=== PATIENT | female | born 1945 | race Caucasian/White ===

== ENCOUNTER 2024-07-05 13:53 | Inpatient (IN) | payer MEDICARE, MEDICAID, SELFPAY ==
--- NOTE | ~2024-07-05 | XR_ITS ---
EXAMINATION: XR hip RT 1V w AP pelvis DATE: 07/06/2024 16:14 INDICATION: Right femoral neck fracture. TECHNIQUE: An anteroposterior view of the pelvis and single view of right hip were obtained. COMPARISON: Right hip and pelvis radiographs 07/05/24 FINDINGS: There is a bipolar right hip hemiarthroplasty in near-anatomic alignment. No acute fracture . There is an old healed fracture of proximal left femur with internal fixation. There is mild left h ip osteoarthritis. There are surgical clips in medial left thigh. IMPRESSION: 1. New bipolar right hip arthroplasty in near-anatomic alignment. 2. Mild left hip osteoarthritis. Reviewed, dictated and finalized at location A.
--- NOTE | ~2024-07-05 | XR_ITS ---
XR hip RT 2V w AP pelvis Ordering provider: Juventino Little MD History: . fracture . Comparison: None. FINDINGS: BONES: Fracture right femoral neck. Minimal superior displacement of the distal fragment. Postoperati ve changes in the proximal left femur. HIP JOINT SPACES: Bilateral mild to moderate osteoarthritic changes. SACROILIAC JOINT SPACES/LUMBAR SPINE: The sacroiliac joint spaces are normal. Mild degenerative aburto es of the visualized lower lumbar spine. PUBIC SYMPHYSIS: Normal. SOFT TISSUES: Normal. IMPRESSION: Fracture right femoral neck. Reviewed, dictated and finalized at location A.
--- NOTE | ~2024-07-05 | XR_ITS ---
SINGLE VIEW LEFT HIP Ordering provider: Juventino Little MD History: . Fx- AP centered on L fem head, Mild Int Rot of leg . Comparison: None. FINDINGS: BONES: Postoperative changes in the left femoral neck and proximal femur for subtrochanteric fracture . Degenerative changes of the spine. JOINT SPACES: Mild to moderate osteoarthritic changes SOFT TISSUES: Normal. IMPRESSION: Postoperative changes in the left proximal femur. Reviewed, dictated and finalized at location A.
--- NOTE | ~2024-07-05 | XR_ITS ---
EXAMINATION: XR surgery orthopedic DATE: 07/06/2024 14:49 INDICATION: Right femoral neck fracture. TECHNIQUE: A single intraoperative view of the pelvis was obtained. COMPARISON: Pelvis radiograph 07/05/24 FINDINGS: There is a broach in proximal right femur. There are osteophytes of right acetabulum. There is an old healed fracture of proximal left femur with internal fixation. There is mild left hip oste oarthritis. There are surgical clips in medial left thigh. IMPRESSION: 1. Right hip arthroplasty in progress. 2. Mild left hip osteoarthritis. Reviewed, dictated and finalized at location A.
--- NOTE | ~2024-07-05 | XR_ITS ---
XR chest 1V portable 07/05/2024 16:18 Indication: Preop Procedure: AP portable chest Comparison: No prior studies for comparison. Findings: Status post median sternotomy for CABG. Prosthetic heart valve present. Cardiomegaly. Right basilar infiltrate may represent atelectasis or developing pneumonia. No edema or pneumothorax. No a cute osseous abnormality. There are severe degenerative changes of the shoulders, right greater than left. Impression: 1: Subtle right basilar infiltrates may represent atelectasis or developing pneumonia. Reviewed, dictated and finalized at location B. Impression: 1: Subtle right basilar infiltrates may represent atelectasis or developing pne umonia.
--- NOTE | 2024-07-05 12:25 | ADMGEN ---
This patient, Annika Ortega, was admitted to [facility] Surg Room 325-02. Patient/family oriented to hospital policies and general routines including ID bracelet, bed and alarms, visiting hours, pain management, procedures, bathroom and other care routines, personal items, smoking policy, room service/diet, and visiting hours. Information on how to activate the Rapid Response Team has been discussed. Patient/Family are encouraged to report perceived risks to care and to ask questions if they do not understand what they are told or what they should do.
[2024-07-05 14:00] VITALS: BP 148/88; PULSE 74; RESP 20; TEMP 36.4; O2SAT 99
--- NOTE | 2024-07-05 15:04 | PM.IMHP ---
H&P: HPI History of Present Illness Date/Time: 07/05/24 14:05 Chief Complaint: Right Hip Pain Narrative: Patient is a resident at [facility] and was transferred to this facility from [facility] in [place] with concern for Right hip fracture. Patient is wheelchair spencer and apparently was placed on the wheelchair in her room but attempted to walk, and was found on the floor. Unclear if the fall was witnessed or unwitnessed and patient unable to provide any information due her history of dementia. Patient had imaging done at the transferring hospital that revealed an acute, displaced subcapital fracture of the right femoral neck. Patient was transferred to this facility for further treatment per Orthopedic surgeon here at [place]. As mentioned, patient confused due to dementia and denies pain but grimaces and moans with right hip region palpation. Significant Labs from transferring facility: Na 140, K+ 3.6, Ca 9.5, CO2 22.8, BUN 19, Cr 0.72, WBC 7.8, Hgb 12.4, HCT 37.5, Plat 331, EKK: SR with occasional PVC's, non-specific ST, T waves abnormalities. Review of Systems Review of Systems: All systems reviewed & are unremarkable except as noted in HPI and below [facility] Family History Family History Father Lung cancer Mother Cerebrovascular accident Hypertension Sibling Dementia Social History Social History Smoking status: Never smoker Second hand tobacco smoke exposure: No Alcohol intake: never Substance use: never Spiritual care concerns: No Meds Home Medications and Allergies Home Medications Medication Instructions Recorded Confirmed Type Advanced Thera-M 1 tablet PO DAILY 07/05/24 07/05/24 History Remeron 15 mg PO HS 07/05/24 07/05/24 History acetaminophen 650 mg 650 mg PO Q12H 07/05/24 07/05/24 History tablet,extended release amlodipine 10 mg tablet 10 mg PO DAILY 07/05/24 07/05/24 History atorvastatin 10 mg tablet 10 mg PO HS 07/05/24 07/05/24 History buspirone 10 mg tablet 10 mg PO BID 07/05/24 07/05/24 History ferrous sulfate 325 mg (65 mg 325 mg PO DAILY 07/05/24 07/05/24 History iron) tablet (Iron (ferrous sulfate)) hydrocodone 5 mg-acetaminophen 325 1 tablet PO Q6H PRN Severe Pain 07/05/24 07/05/24 History mg tablet (Scale Score 7-10) lorazepam 0.5 mg tablet (Ativan) 0.5 mg PO TID PRN 07/05/24 07/05/24 History anxiety/aggitation metoprolol tartrate 50 mg tablet 50 mg PO BID 07/05/24 07/05/24 History omeprazole 20 mg capsule,delayed 20 mg PO BID 07/05/24 07/05/24 History release ondansetron HCl 4 mg tablet 4 mg PO Q6H PRN nausea/vomiting 07/05/24 07/05/24 History polyethylene glycol 3350 17 gram 17 g PO DAILY 07/05/24 07/05/24 History oral powder packet (Miralax) sennosides 8.6 mg tablet (Senokot) 8.6 mg PO DAILY PRN Constipation 07/05/24 07/05/24 History sertraline 100 mg tablet 100 mg PO DAILY 07/05/24 07/05/24 History tamsulosin 0.4 mg capsule (Flomax) 0.4 mg PO DAILY 07/05/24 07/05/24 History Allergies Allergy/AdvReac Type Severity Reaction Status Date / Time cephalexin Allergy Itching Verified 07/05/24 13:27 chlordiazepoxide Allergy Unknown Verified 07/05/24 13:27 ciprofloxacin Allergy Unknown Verified 07/05/24 13:27 codeine Allergy Nausea and Verified 07/05/24 13:27 Vomiting Sulfa (Sulfonamide Allergy Rash Verified 07/05/24 13:27 Antibiotics) acetaminophen AdvReac Nausea and Verified 07/05/24 13:27 Vomiting Vital Signs Vital Signs - 24 hr 07/05/24 14:00 Temperature 97.5 F L Pulse Rate 74 Respiratory Rate 20 Blood Pressure 148/88 H Pulse Oximetry 99 Exam Narrative: General: Pleasantly confused, only oriented to self. HEENT: Atraumatic, PERRL, pink and moist mucus membrane. Neck: Supple. Respiratory: Clear bilaterally. Lab Tech: RRR, S1S2. Gastrointestinal: Soft and non-tender, +
--- NOTE | 2024-07-05 15:32 | ECG_ITS ---
Test Date: 2024-07-05 15:48:05 Measurements Intervals [place] Rate: 82 P: 10 TX: 150 QRS: 3 QRSD: 94 T: 50 QT: 391 QTc: 459 Interpretive Statements SINUS RHYTHM WITH OCCASIONAL VENTRICULAR PREMATURE COMPLEXES NONSPECIFIC ST & T-WAVE ABNORMALITY No previous ECG available for comparison Electronically Signed On 07-05-2024 17:16:12 CDT by Deepthi Acuna M.D.
[2024-07-05 16:00] VITALS: BP 148/88; PULSE 74; RESP 20; TEMP 36.4; O2SAT 99
[2024-07-05 16:03] VITALS: BMI 22.3
[2024-07-05 16:44] LABS: Basophils Percent Auto 0.4 % (0.2-1.2); Eosinophils Percent Auto 0.1 % (0-4.4); Hematocrit 42.8 % (37.0-47.0); Hemoglobin 13.8 g/dL (12.0-15.0); Immature Granulocyte Absolute 0.04 K/mm3 (0.00-0.031); Immature Granulocyte Percent A 0.4 % (0-0.5); Lymphocytes Absolute Auto 0.75 K/mm3 (0.9-3.2); Lymphocytes Percent Auto 7.2 % (18.3-44.2); Mean Corpuscular HGB Conc 32.2 g/dl (32-36); Mean Corpuscular Hemoglobin 29.9 pg (26-34); Mean Corpuscular Volume 92.8 fl (80-100); Mean Platelet Volume 8.6 fl (7.4-10.4); Monocytes Absolute Auto 0.5 K/mm3 (0.1-0.6); Monocytes Percent Auto 4.8 % (2.6-8.5); Neutrophils Absolute Auto 9.1 K/mm3 (1.3-6.7); Neutrophils Percent Auto 87.1 % (45.5-73.1); Platelet Count Result 331 k/mm3 (150-375); Red Blood Count 4.61 M/mm3 (4.2-5.4); Red Cell Distribution Width 12.3 % (11.5-14.5); White Blood Count 10.5 K/mm3 (4.5-10.0)
[2024-07-05 16:55] LABS: Alanine Aminotransferase 18 U/L (6-35); Albumin Level 4.4 g/dL (3.5-5.1); Alkaline Phosphatase 176 U/L (38-126); Anion Gap 13 mmol/L (4-12); Aspartate Amino Transferase 35 U/L (14-36); Bilirubin,Total 0.8 mg/dL (0.2-1.3); Blood Urea Nitrogen 12 mg/dL (7-17); Calcium 9.6 mg/dL (8.4-10.2); Carbon Dioxide 29 mmol/L (22-30); Chloride 97 mmol/L (98-107); Estimated CRCL calculation 58 ml/min; Estimated Glomerular Filt Rate > 60; Glucose 113 mg/dL (65-110); INR 1.1; Partial Thromboplastin Time 31.7 Seconds (22.3-36.8); Potassium 3.8 mmol/L (3.4-5.0); Prothrombin Time 14.5 Seconds (11.1-14.7); Sodium 139 mmol/L (137-145)
--- NOTE | 2024-07-05 16:55 | PM.CNOR ---
Assessment and Plan Assessment and plan (1) Fracture of femoral neck, right, closed: Qualifiers: Encounter type: initial encounter Qualified Code(s): S72.001A - Fracture of unspecified part of neck of right femur, initial encounter for closed fracture Code(s): S72.001A - Fracture of unspecified part of neck of right femur, initial encounter for closed fracture Status: Acute Assessment and Plan: Patient is an 79-year-old female fell last night when she is believed to have out of bed by herself and she was evaluated at [facility] and x-rays demonstrate a displaced subcapital femoral neck fracture [place] 4. Her past medical history is significant for moderate. She does have worsening when I speak to her, she had no understanding of anything that I said to her and all of her wrist this is were completely unrelated to what I had said. She expressed that she is tired and upset. She is completely unaware of the. When I gently touched her right knee putting her hand on her right hip. She did not wish further so I was not able to assess pulses but the is normal and she does wiggle her. Toes voluntarily. She denies any other injury. To cooperate with further examination however. She wanted to be left alone. I obtained past history from her son Blake. She has a history of a poor seen aortic valve placed approximately 20 years ago and she did very well with that that she was very active can 10 miles a day until her dementia became significant several years ago. She has followed with Dr. Yoder, the ivory carver at [facility], for many years but not the last 2 or 3 years since she has become too agitated to go in the car ride. Approximately 2 years ago she underwent trochanteric nail fixation of intertrochanteric left hip fracture. This healed well. She has several allergies she had nausea and vomiting from Tylenol in the past. I will try liquid Tylenol and see if she tolerates that better. She had itching with cephalexin so we will have to assume that she may have an allergy to cephalosporins. As her home medications she does have [place] every 6 hours as needed listed. New x-rays were obtained here true reviewed. There does not appear to be any calf of the femoral neck or proximal femur. It appears that she has an isolated subcapital femoral neck fracture which is completely displaced. She does spend much of her time in the wheelchair but is in a program at [facility] where she is walked with therapy every day with a walker. Her son denies any known history of heart attack or stroke. Assessment and plan: Patient has a displaced right 5th subcapital. I discussed options with her son Blake at length. The best surgical option would be a cemented partial hip replacement. She will not be able to understand how to be partial weight-bearing or put it so the cemented stem would be preferred as there would be less risk of periprosthetic fracture postoperatively. Other treatment would be nonsurgical treatment providing comfort measures. Risk of surgery was discussed in detail and I reviewed the pertinent surgical complications as well as discussed the fact that she is at increased risk for medical complications and mortality because of her advanced age and dementia. Her son wants to give her the best opportunity to have acceptable quality of life and wants to proceed with surgery in the hopes that she can resume walking again to some degree we will proceed tomorrow the OR as determined the surgery time will be approximately I have spoken with the hospitalist and cardiology is also going to be consulted for their recommendations The plan will be for her to return to care center after surgery for according to her son. History of Present Illness HPI Consult date: 07/05/24 Chief complaint: R femoral neck fx PMFSH Family History Family History Father
[2024-07-05 17:08] LABS: Troponin I 0.031 ng/mL (0.000-0.034)
[2024-07-05 18:02] VITALS: PULSE 75
[2024-07-05] MEDS: SODIUM CHLORIDE 0.9% IV 1,000 ML 75 ML IV CONT (18:02)
[2024-07-05] MEDS: METOPROLOL TARTRATE 50 MG TAB PO (18:02)
[2024-07-05] MEDS: ACETAMINOPHEN 325 MG TABLET 650 MG PO (18:03)
[2024-07-05] MEDS: oxyCODONE HCL (*CRX) 2.5 MG TAB IR PO (18:03)
[2024-07-05] MEDS: PANTOPRAZOLE 40 MG TABLET PO (18:03)
[2024-07-05] MEDS: busPIRone HCL 10 MG TABLET PO (18:03)
[2024-07-05 20:00] VITALS: BP 160/81; PULSE 59; RESP 22; TEMP 35.8; O2SAT 97
[2024-07-05] MEDS: ATORVASTATIN 10 MG TABLET PO (20:24)
[2024-07-05] MEDS: MIRTAZAPINE 15 MG TABLET PO (20:24)
[2024-07-06] VITALS (19 sets, daily range): BP systolic 96–156; BP diastolic 43–80; PULSE 61–101; RESP 12–17; TEMP 35.9–37.7; O2SAT 96–100
[2024-07-06] MEDS: MORPHINE SULFATE (*CRX) 2 MG/ML INJ IV PUSH ×2 (01:08→09:10)
[2024-07-06 01:48] LABS: Add Urine Microscopic? YES; Appearance Urine Clear (Clear); Bacteria Urine None Seen /hpf; Bilirubin Urine Negative (Negative); Blood Urine 1+ (Negative); Color Urine Yellow (Yellow); Glucose Urine UA Negative (Negative); Ketones Urine Negative (Negative); Leukocyte Esterase Ur Negative LEU/UL (Negative); Nitrate Urine Negative (Negative); Non Pathogenic Casts 0-2; Protein Urine 2+ mg/dL (Negative); RBC Urine 0-2 /hpf (0-2); Specific Grav Ur 1.006 (1.001-1.035); Squamous Epithelial Cell Urine None Seen /hpf (Few); WBC Urine 0-5 /hpf (0-3)
[2024-07-06 06:30] LABS: Basophils Percent Auto 0.3 % (0.2-1.2); Eosinophils Percent Auto 0.3 % (0-4.4); Hematocrit 36.8 % (37.0-47.0); Hemoglobin 12.1 g/dL (12.0-15.0); Immature Granulocyte Absolute 0.05 K/mm3 (0.00-0.031); Immature Granulocyte Percent A 0.5 % (0-0.5); Lymphocytes Absolute Auto 1.07 K/mm3 (0.9-3.2); Lymphocytes Percent Auto 11.5 % (18.3-44.2); Mean Corpuscular HGB Conc 32.9 g/dl (32-36); Mean Corpuscular Hemoglobin 30.2 pg (26-34); Mean Corpuscular Volume 91.8 fl (80-100); Mean Platelet Volume 8.8 fl (7.4-10.4); Monocytes Absolute Auto 0.6 K/mm3 (0.1-0.6); Monocytes Percent Auto 6.1 % (2.6-8.5); Neutrophils Absolute Auto 7.5 K/mm3 (1.3-6.7); Neutrophils Percent Auto 81.3 % (45.5-73.1); Platelet Count Result 295 k/mm3 (150-375); Red Blood Count 4.01 M/mm3 (4.2-5.4); Red Cell Distribution Width 12.4 % (11.5-14.5); White Blood Count 9.3 K/mm3 (4.5-10.0)
[2024-07-06 06:48] LABS: Anion Gap 10 mmol/L (4-12); Blood Urea Nitrogen 13 mg/dL (7-17); Calcium 8.7 mg/dL (8.4-10.2); Carbon Dioxide 23 mmol/L (22-30); Chloride 103 mmol/L (98-107); Estimated CRCL calculation 58 ml/min; Estimated Glomerular Filt Rate > 60; Glucose 99 mg/dL (65-110); Potassium 3.6 mmol/L (3.4-5.0); Sodium 136 mmol/L (137-145)
--- NOTE | 2024-07-06 07:29 | PM.CNCAR ---
Assessment and Plan Assessment and plan (1) Fracture of femoral neck, right, closed: Qualifiers: Encounter type: initial encounter Qualified Code(s): S72.001A - Fracture of unspecified part of neck of right femur, initial encounter for closed fracture Code(s): S72.001A - Fracture of unspecified part of neck of right femur, initial encounter for closed fracture Status: Acute (2) Preoperative cardiovascular examination: Code(s): Z01.810 - Encounter for preprocedural cardiovascular examination Status: Acute Assessment and Plan: I would consider her at least a moderate risk for noncardiac surgery and general anesthesia based on her low functional capacity, frailty, aortic stenosis, and coronary artery disease. (3) Coronary artery disease: Code(s): I25.10 - Atherosclerotic heart disease of [place] coronary artery without angina pectoris Status: Acute (4) Aortic stenosis: Code(s): I35.0 - Nonrheumatic aortic (valve) stenosis Status: Acute History of Present Illness History of Present Illness Consult date/time: 07/06/24 07:29 Requesting physician: Juventino Little MD Consult reason: pre-op evaluation Reason For Visit: R femoral neck fx Narrative: Annika Ortega is an 79 year old female with history of aortic stenosis status post bioprosthetic aortic valve replacement in 2006 and coronary artery disease status post coronary artery bypass graft to the diagonal branch also in 2006. She follows with Dr. Yoder at [place]. The patient has severe dementia, therefore I am unable to obtain any history from her; she refuses to speak to me. Details about her cardiac history have been obtained from the medical record. Review of Systems Review of Systems: ROS unobtainable: Yes unobtainable due to mental status [facility] Family History Family History Father Lung cancer Mother Cerebrovascular accident Hypertension Sibling Dementia Social History Social History Smoking status: Never smoker Second hand tobacco smoke exposure: No Alcohol intake: never Substance use: never Spiritual care concerns: No Meds Home Medications and Allergies Home Medications Medication Instructions Recorded Confirmed Type Advanced Thera-M 1 tablet PO DAILY 07/05/24 07/05/24 History Remeron 15 mg PO HS 07/05/24 07/05/24 History acetaminophen 650 mg 650 mg PO Q12H 07/05/24 07/05/24 History tablet,extended release amlodipine 10 mg tablet 10 mg PO DAILY 07/05/24 07/05/24 History atorvastatin 10 mg tablet 10 mg PO HS 07/05/24 07/05/24 History buspirone 10 mg tablet 10 mg PO BID 07/05/24 07/05/24 History ferrous sulfate 325 mg (65 mg 325 mg PO DAILY 07/05/24 07/05/24 History iron) tablet (Iron (ferrous sulfate)) hydrocodone 5 mg-acetaminophen 325 1 tablet PO Q6H PRN Severe Pain 07/05/24 07/05/24 History mg tablet (Scale Score 7-10) lorazepam 0.5 mg tablet (Ativan) 0.5 mg PO TID PRN 07/05/24 07/05/24 History anxiety/aggitation metoprolol tartrate 50 mg tablet 50 mg PO BID 07/05/24 07/05/24 History omeprazole 20 mg capsule,delayed 20 mg PO BID 07/05/24 07/05/24 History release ondansetron HCl 4 mg tablet 4 mg PO Q6H PRN nausea/vomiting 07/05/24 07/05/24 History polyethylene glycol 3350 17 gram 17 g PO DAILY 07/05/24 07/05/24 History oral powder packet (Miralax) sennosides 8.6 mg tablet (Senokot) 8.6 mg PO DAILY PRN Constipation 07/05/24 07/05/24 History sertraline 100 mg tablet 100 mg PO DAILY 07/05/24 07/05/24 History tamsulosin 0.4 mg capsule (Flomax) 0.4 mg PO DAILY 07/05/24 07/05/24 History aspirin 81 mg tablet,delayed 81 mg PO DAILY #90 tabs 07/07/24 Rx release celecoxib 100 mg capsule (Celebrex) 100 mg PO DAILY@0800 #8 caps 07/07/24 Rx doxycycline hyclate 100 mg tablet 100 mg PO Q12HR #14 tabs 07/07/24 Rx enoxaparin 40 mg/0.4 mL 40 mg (0.
--- NOTE | 2024-07-06 08:14 | W.PM.PROC2 ---
Procedure Note - Detailed Date of Procedure 07/06/24 Pre-op Diagnosis R femoral neck fx Post-op Diagnosis Same Procedure Performed Cemented bipolar hemiarthroplasty right hip Surgeon Juventino Little MD Head Of History Jane Anesthesia General Description of Procedure Patient was brought to the operating room and general anesthesia was administered. The right hip area was carefully scrubbed with the chlorhexidine cloth. She was placed in the lateral decubitus position in the right hip prepped draped usual fashion. Arms were carefully padded and axillary roll placed. She received 2 g of Aztreonam and weight based vancomycin preoperatively. A 6 in longitudinal incision was made over the lateral aspect of the right hip. The fascia was incised in line with the incision. There was a grade 2 central tear of the gluteus medius tendon with a bald area of the central lateral greater trochanter.. The posterior 25% in the anterior 25% of the abductor tendon insertion was present and intact. High-grade articular sided partial tearing of the minimus was present but it was not retracted. Anterior 50% of gluteus medius and minimus were elevated off the greater trochanter capsule incised in an L fashion. Preliminary femoral neck osteotomy made. Femoral head was removed and measured just over 42 mm in diameter. Would not pass through the 40 to sizing ring but it passed easily through the 43 and the 43 head sit snugly about a mm from full seating and was felt to be the best size. The proximal femur was prepared. We slowly inserted the sucker tip down the canal to remove marrow fat. We broached to a size the [place] cement the size 2 broach and trialed with the +5 head which is very tight. I countersunk the broach another 2 mm and the trialed with the 1.5 head and this had very appropriate soft tissue tension with excellent range of motion and normal stability an intraoperative AP pelvis x-ray was obtained. This showed appropriate leg lengths and offset. The broach seemed a little undersized and I felt I could go up to a size 3 and after calcar planing we did go up to a size 3 and recalcitrant planed and trialing with a 1.5 again was appropriate. A cement restrictor was inserted down the canal. We assembled the [place] cemented size 3 stem to the 9.75 mm centralizer tip the back table. The canal was prepared with the bottle brush lavaged and then epinephrine-soaked sponges and dry. Two batches of methylmethacrylate 1 the gentamicin powder were used and cement was used to coat the femoral component and inserted into the canal and lightly pressurized and the size 3 [place] stem inserted and seated carefully and held still for the 15 minute caring time. Excess cement was removed the acetabulum was checked for debris and we trialed again with a 1.5 which was appropriate. We assembled the 1.5 head into the 43 bipolar head and impacted this onto the clean and dried trunnion. We were going to irrigate again and I learned that there was Ancef in the irrigation. We therefore flush the irrigation done with normal saline and thoroughly irrigated the wound with normal saline this time. Hip was reduced range of motion stability reconfirmed. Leg lengths appeared equal. The superior part capsulotomy was closed with a running 2. Ethibond. The anterior abductors reattached to greater trochanter with 3 5. Ethibond through drill holes and reinforce with 2. Ethibond. The fascia was closed with 2. Vicryl and running 1. Unidirectional barbed Stratafix sutures. Local anesthetic cocktail had been injected into the periarticular soft tissues. A drain was placed deep in the subcutaneous layer and skin closed with 2 subcutaneous Vicryl and glue. EBL was about 200 cc. The bone tend to bleed more than average during the 1st part of the procedure but the wound was very dry at the time of wound closure. 1400 cc fluids given during the procedure. She was transferred postop recovery room in [facility]
[2024-07-06] MEDS: SODIUM CHLORIDE 0.9% IV 1,000 ML 75 ML IV CONT (08:58)
[2024-07-06] MEDS: METOPROLOL TARTRATE 50 MG TAB PO (09:08)
[2024-07-06] MEDS: VANCOMYCIN 1,000 MG/NS 250 ML 1,000 MG/250 ML BAG 250 MG IVPB ×2 (10:59→23:31)
--- NOTE | 2024-07-06 11:05 | PC.NURSE ---
Patient off floor to OR via bed. Report given to Cecelia FERGUSON.
[2024-07-06] MEDS: LACTATED RINGERS 1,000 ML 30 ML IV CONT ×2 (11:45→16:11)
[2024-07-06] MEDS: TRANEXAMIC ACID 1,000MG/ISO100 1,000 MG/100 ML BAG 200 MG IVPB (12:00)
[2024-07-06] MEDS: AZTREONAM 2 GM in SODIUM CHLORIDE 0.9% IV 100 ML 200 ML IVPB (12:12)
--- NOTE | 2024-07-06 12:30 | WPDHPUPDATE1 ---
History and Physical Update Update Date/Time: 07/06/24 12:30 History and Physical has been reviewed, including an updated exam of the patient. Cardiology and hosp't notes reviewed. There are NO changes in the patient's condition. Risks, benefits, and alternatives have been discussed and questions answered. Patient agrees to proceed with procedure.
--- NOTE | 2024-07-06 13:30 | PM.IMPN ---
Progress Note: A&P Assessment and Plan (1) Fall from wheelchair: Code(s): W05.0XXA - Fall from non-moving wheelchair, initial encounter Status: Acute Assessment and Plan: - Unclear if witnessed or unwitnessed from medical records review and pt unable to tell 2/[address] - [address] head with no acute intracranial process. - Right femoral neck fracture on XR right hip to be managed per ortho. - XR right knee negative for acute. - Labs fairly wnl. - No obvious signs of infection. - EKG: SR with occasional PVC's, non-specific ST, T wave abnormalities. - UA and CXR pending. - Fall precautions. (2) Fracture of femoral neck, right, closed: Qualifiers: Encounter type: initial encounter Qualified Code(s): S72.001A - Fracture of unspecified part of neck of right femur, initial encounter for closed fracture Code(s): S72.001A - Fracture of unspecified part of neck of right femur, initial encounter for closed fracture Status: Acute Assessment and Plan: - Secondary to fall. Xrays reviewed For surgery today cardiology eval noted moderate risk for surgery ortho consulted from ER PT/OT and PRN pain control (3) Dementia without behavioral disturbance: Code(s): F03.90 - Unspecified dementia, unspecified severity, without behavioral disturbance, psychotic disturbance, mood disturbance, and anxiety Status: Chronic Assessment and Plan: - Resume home meds. - Safety monitoring and assist with care. (4) Essential (primary) hypertension: Code(s): I10 - Essential (primary) hypertension Status: Chronic Assessment and Plan: - Home meds resumed. - Adjust meds as needed. (5) Major depressive disorder: Code(s): F32.9 - Major depressive disorder, single episode, unspecified Status: Acute Assessment and Plan: - Home meds resumed. (6) Mixed hyperlipidemia: Code(s): E78.2 - Mixed hyperlipidemia Status: Acute Assessment and Plan: - Continue statin. Plan Code Status: DNR. Diet: Heart Healthy, NPO post midnight for surgery. DVT PPx: per Ortho Lines: Peripheral IV Subjective Date/time seen: 07/06/24 13:30 Review of Systems Review of Systems: patient comfortable at bedside but confused which is noted to be her baseline by her nurse awaiting ORIF by Ortho All systems reviewed & are unremarkable except as noted in HPI and below Exam Narrative: General: Pleasantly confused, only oriented to self. HEENT: Atraumatic, PERRL, pink and moist mucus membrane. Neck: Supple. Respiratory: Clear bilaterally. [place]: RRR, S1S2. Gastrointestinal: Soft and non-tender, +ve bowel sounds all quadrants. Skin: Warm and dry. No rash or lesions noted on limited exam. Extremities: No cyanosis, clubbing or edema. Right leg shortened. Neurological: Pleasantly confused. Psych: Oriented to self. Cranial nerves II-XII grossly intact. Urinary Catheter: Urinary Catheter: patent and draining and urine clear Objective Data Vital Signs Vital Signs: Vital Signs - 24 hr 07/05/24 14:00 07/05/24 18:02 07/05/24 16:00 Temperature 97.5 F L 97.5 F L Pulse Rate 74 75 74 Respiratory Rate 20 20 Blood Pressure 148/88 H 148/88 H Pulse Oximetry 99 99 Oxygen Delivery 07/05/24 20:00 07/06/24 03:57 07/06/24 08:00 Temperature 96.4 F L 96.6 F L 97.1 F L Pulse Rate 59 L 62 101 H Respiratory Rate 22 H 16 16 Blood Pressure 160/81 H 156/78 H 153/80 H Pulse Oximetry 97 99 97 Oxygen Delivery 07/06/24 09:01 07/06/24 09:08 07/06/24 08:55 Temperature Pulse Rate 79 79 Respiratory Rate Blood Pressure Pulse Oximetry 97 97 Oxygen Delivery Room Air 07/06/24 12:00 Temperature 99.9 F H Pulse Rate 61 Respiratory Rate 16 Blood Pressure 156/71 H Pulse Oximetry 97 Oxygen Delivery Room Air Intake/Output Intake/Output: Intake & Output 07/03/24 07/04/24 07/05/24 07/06/24 23:59 23:59 23:59 23:59 Int
--- NOTE | 2024-07-06 13:37 | WPDANESEPPF ---
Anes - Initial Pre Proc Eval Procedure: Operation Date: 07/06/24 12:30 Proposed Procedures p Right Bipolar Hip Replacement - Juventino Little MD Date/Time: 07/06/24 13:37 Surgeon: Kyle Olivera MD Pre Op Diagnosis: R femoral neck fx Patient Data Age: 79 Gender: F Height: 1.57 m Weight: 55.4 kg Last Vital Signs Temp 99.9 F H 07/06/24 12:00 Pulse 61 07/06/24 12:00 Resp 16 07/06/24 12:00 BP 156/71 H 07/06/24 12:00 Pulse Ox 97 07/06/24 12:00 O2 Del Method Room Air 07/06/24 12:00 Allergies Allergy/AdvReac Type Severity Reaction Status Date / Time cephalexin Allergy Itching Verified 07/05/24 13:27 chlordiazepoxide Allergy Unknown Verified 07/05/24 13:27 ciprofloxacin Allergy Unknown Verified 07/05/24 13:27 codeine Allergy Nausea and Verified 07/05/24 13:27 Vomiting Sulfa (Sulfonamide Allergy Rash Verified 07/05/24 13:27 Antibiotics) acetaminophen AdvReac Nausea and Verified 07/05/24 13:27 Vomiting Home Medications Medication Instructions Recorded Confirmed Type Advanced Thera-M 1 tablet PO DAILY 07/05/24 07/05/24 History Remeron 15 mg PO HS 07/05/24 07/05/24 History acetaminophen 650 mg 650 mg PO Q12H 07/05/24 07/05/24 History tablet,extended release amlodipine 10 mg tablet 10 mg PO DAILY 07/05/24 07/05/24 History atorvastatin 10 mg tablet 10 mg PO HS 07/05/24 07/05/24 History buspirone 10 mg tablet 10 mg PO BID 07/05/24 07/05/24 History ferrous sulfate 325 mg (65 mg 325 mg PO DAILY 07/05/24 07/05/24 History iron) tablet (Iron (ferrous sulfate)) hydrocodone 5 mg-acetaminophen 325 1 tablet PO Q6H PRN Severe Pain 07/05/24 07/05/24 History mg tablet (Scale Score 7-10) lorazepam 0.5 mg tablet (Ativan) 0.5 mg PO TID PRN 07/05/24 07/05/24 History anxiety/aggitation metoprolol tartrate 50 mg tablet 50 mg PO BID 07/05/24 07/05/24 History omeprazole 20 mg capsule,delayed 20 mg PO BID 07/05/24 07/05/24 History release ondansetron HCl 4 mg tablet 4 mg PO Q6H PRN nausea/vomiting 07/05/24 07/05/24 History polyethylene glycol 3350 17 gram 17 g PO DAILY 07/05/24 07/05/24 History oral powder packet (Miralax) sennosides 8.6 mg tablet (Senokot) 8.6 mg PO DAILY PRN Constipation 07/05/24 07/05/24 History sertraline 100 mg tablet 100 mg PO DAILY 07/05/24 07/05/24 History tamsulosin 0.4 mg capsule (Flomax) 0.4 mg PO DAILY 07/05/24 07/05/24 History Laboratory Tests 07/05/24 07/05/24 07/05/24 16:32 16:32 16:37 WBC 10.5 H K/mm3 (4.5-10.0) RBC 4.61 M/mm3 (4.2-5.4) Hgb 13.8 g/dL (12.0-15.0) Hct 42.8 % (37.0-47.0) MCV 92.8 fl (80-100) MCH 29.9 pg (26-34) MCHC 32.2 g/dl (32-36) RDW 12.3 % (11.5-14.5) Plt Count 331 k/mm3 (150-375) MPV 8.6 fl (7.4-10.4) Immature Gran % (Auto) 0.4 % (0-0.5) Neut % (Auto) 87.1 H % (45.5-73.1) Lymph % (Auto) 7.2 L % (18.3-44.2) [place] % (Auto) 4.8 % (2.6-8.5) Eos % (Auto) 0.1 % (0-4.4) Baso % (Auto) 0.4 % (0.2-1.2) Lymph # (Auto) 0.75 L K/mm3 (0.9-3.2) [place] # (Auto) 0.5 K/mm3 (0.1-0.6) Eos # (Auto) 0.0 K/mm3 (0-0.3) Baso # (Auto) 0.0 K/mm3 (0.0-0.1) Abs Immat Gran (auto) 0.04 H K/mm3 (0.00-0.031) Absolute Neuts (auto) 9.1 H K/mm3 (1.3-6.7) Absolute Nucleated RBC 0.000 K/mm3 (0.0-0.012) Nucleated RBC % 0.0 % (0.0-0.2) PT 14.5 Seconds (11.1-14.7) INR 1.1 APTT 31.7 Seconds (22.3-36.8) Sodium 139 mmol/L (137-145) Potassium 3.8 mmol/L (3.4-5.0) Chloride 97 L mmol/L (98-107) Carbon Dioxide 29 mmol/L (22-30) Anion Gap 13 H mmol/L (4-12) BUN 12 mg/dL (7-17) Creatinine 0.50 L mg/dL (0.7-1.0) Estim Creat Clear Calc 58 ml/min
[2024-07-06] MEDS: SODIUM CHLORIDE 0.9% IV 37.7 ML, MORPHINE SULFATE INJ (*CRX) 2 MG, ROPivacaine HCL 1% 2... INFILTRATE (14:11)
[2024-07-06] MEDS: ceFAZolin SODIUM 1 GM VIAL 3 GM (14:11)
[2024-07-06] MEDS: GENTAMICIN BONE CEMENT REFOBACIN 1 EACH TOPICAL (14:50)
[2024-07-06] MEDS: TRANEXAMIC ACID 1,000 MG/10 ML AMPUL 1000 MG IV PUSH (15:44)
[2024-07-06] MEDS: AZTREONAM 1 GM in SODIUM CHLORIDE 0.9% IV 50 ML 100 ML IVPB ×2 (16:52→20:50)
--- NOTE | 2024-07-06 18:10 | PC.NURSE ---
Patient returned to floor via bed from PACU. Report received from Misti FERGUSON. No patient complaints at this time.
--- NOTE | 2024-07-06 18:59 | PM.OP ---
Procedure Note - Brief Procedure Note - Brief Date of procedure: 07/06/24 R femoral neck fx Procedure performed: right cemented caridad-arthroplasty Surgeon: DELIA Rouse Description of procedure: 79 y/o female who underwent right cemented arthroplasty on 07/06. I was involved in the procedure including positioning the patient on the OR table and first assisting through the time of surgery. Total time spent was 3 hours Urine output (mL): 650
[2024-07-06] MEDS: SODIUM CHLORIDE 0.9% IV 1,000 ML 125 ML IV CONT (19:24)
[2024-07-06 19:58] LABS: Basophils Percent Auto 0.2 % (0.2-1.2); Hematocrit 33.2 % (37.0-47.0); Hemoglobin 10.8 g/dL (12.0-15.0); Immature Granulocyte Absolute 0.05 K/mm3 (0.00-0.031); Immature Granulocyte Percent A 0.4 % (0-0.5); Lymphocytes Absolute Auto 0.31 K/mm3 (0.9-3.2); Lymphocytes Percent Auto 2.5 % (18.3-44.2); Mean Corpuscular HGB Conc 32.5 g/dl (32-36); Mean Corpuscular Volume 92.2 fl (80-100); Mean Platelet Volume 8.8 fl (7.4-10.4); Monocytes Absolute Auto 0.3 K/mm3 (0.1-0.6); Neutrophils Absolute Auto 11.6 K/mm3 (1.3-6.7); Neutrophils Percent Auto 94.9 % (45.5-73.1); Platelet Count Result 271 k/mm3 (150-375); Red Cell Distribution Width 12.4 % (11.5-14.5); White Blood Count 12.3 K/mm3 (4.5-10.0)
[2024-07-06] MEDS: MIRTAZAPINE 15 MG TABLET PO (20:50)
[2024-07-06] MEDS: ATORVASTATIN 10 MG TABLET PO (20:50)
[2024-07-07] VITALS (8 sets, daily range): BP systolic 92–137; BP diastolic 40–65; PULSE 71–110; RESP 12–24; TEMP 36.2–37.6; O2SAT 95–99; BMI 10.0
--- NOTE | 2024-07-07 | ECHO_ITS ---
Patient Info Name: Annika Ortega Age: 79 years : 1945 Gender: Female Ht: 62 in Wt: 122 lbs BSA: 1.56 m2 HR: 110 bpm BP: 107 / 40 mmHg Heart Rhythm: Sinus Rhythm Technical Quality: Fair Exam Date: 07/07/2024 7:55 AM Exam Location: Echo Lab Patient Status: Inpatient Admit Date: 07/05/2024 Staff Ordering Physician: Flory Joyner [employer]oth Mercerizer Back Tender: Orlando Villegas RDCS Attending Provider: Kyle Olivera MD Referring Physician: Anya FIELDS; Exam Type: CA echo doppler color flow Study Info Indications - Aortic stenosis Complete two-dimensional, color flow and Doppler transthoracic echocardiogram is performed. Summary 1. Complete two-dimensional, color flow and Doppler transthoracic echocardiogram is performed. 2. Technically somewhat challenging and incomplete examination. 3. Left ventricular hypertrophy with well-preserved systolic function. 4. Left atrial enlargement. 5. Bioprosthetic aortic valve which appears normal, Doppler interrogation was not performed. 6. Mild mitral regurgitation. Left Ventricle Left ventricular chamber dimension is normal. Left ventricular systolic function is normal, estimated at 60-65%. There is moderate concentric increased left ventricular wall thickness. The left ventricular diastolic function is grade I diastolic dysfunction. Right Ventricle Right ventricular chamber dimension is normal. Left Atria Left atrial chamber dimension is mildly enlarged. Right Atria Right atrial chamber dimension is normal. 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 Pulmonic Valve The pulmonic valve is not well visualized. Mitral Valve The mitral valve has normal leaflets. There is mild mitral valve regurgitation. Tricuspid Valve The tricuspid valve leaflets are normal. Pericardium/Pleural The pericardium appears normal. Aorta The aortic root size at the sinus of Valsalva is normal. Left Ventricular Outflow Tract Name Value Normal LVOT 2D LVOT Diameter 1.8 cm Pulmonic Valve Name Value Normal PV Doppler PV Peak Gradient 9 mmHg PV Regurgitation Doppler WI Peak End Diastolic Velocity 88 cm/s Tricuspid Valve Name Value Normal TV Regurgitation Doppler TR Peak Velocity 291 cm/s TR Peak Gradient 34 mmHg Aortic Valve Name Value Normal AV Regurgitation 2D LVOT Area 2.6 cm2 Ventricles
[2024-07-07] MEDS: AZTREONAM 1 GM in SODIUM CHLORIDE 0.9% IV 50 ML 100 ML IVPB ×2 (04:15→13:00)
[2024-07-07 06:09] LABS: Basophils Percent Auto 0.4 % (0.2-1.2); Eosinophils Percent Auto 0.1 % (0-4.4); Hematocrit 31.8 % (37.0-47.0); Hemoglobin 10.1 g/dL (12.0-15.0); Immature Granulocyte Absolute 0.04 K/mm3 (0.00-0.031); Immature Granulocyte Percent A 0.4 % (0-0.5); Lymphocytes Absolute Auto 0.85 K/mm3 (0.9-3.2); Lymphocytes Percent Auto 8.4 % (18.3-44.2); Mean Corpuscular HGB Conc 31.8 g/dl (32-36); Mean Corpuscular Hemoglobin 30.1 pg (26-34); Mean Corpuscular Volume 94.9 fl (80-100); Monocytes Absolute Auto 0.6 K/mm3 (0.1-0.6); Monocytes Percent Auto 5.8 % (2.6-8.5); Neutrophils Absolute Auto 8.5 K/mm3 (1.3-6.7); Neutrophils Percent Auto 84.9 % (45.5-73.1); Platelet Count Result 283 k/mm3 (150-375); Red Blood Count 3.35 M/mm3 (4.2-5.4); Red Cell Distribution Width 12.7 % (11.5-14.5); White Blood Count 10.1 K/mm3 (4.5-10.0)
[2024-07-07] MEDS: ACETAMINOPHEN 500 MG TABLET PO ×3 (06:11→18:29)
[2024-07-07] MEDS: SODIUM CHLORIDE 0.9% IV 1,000 ML 125 ML IV CONT ×2 (06:11→15:26)
[2024-07-07 06:15] LABS: Alanine Aminotransferase 18 U/L (6-35); Alkaline Phosphatase 124 U/L (38-126); Anion Gap 8 mmol/L (4-12); Aspartate Amino Transferase 30 U/L (14-36); Bilirubin,Total 0.5 mg/dL (0.2-1.3); Blood Urea Nitrogen 16 mg/dL (7-17); Calcium 8.3 mg/dL (8.4-10.2); Carbon Dioxide 22 mmol/L (22-30); Chloride 106 mmol/L (98-107); Estimated CRCL calculation 49 ml/min; Estimated Glomerular Filt Rate > 60; Glucose 97 mg/dL (65-110); Potassium 3.7 mmol/L (3.4-5.0); Sodium 136 mmol/L (137-145)
--- NOTE | 2024-07-07 07:23 | WPDANESPN ---
Anes - Prog Note Post-Op Date/Time: 07/07/24 07:23 Cardiovascular status: normal Respiratory status: normal Airway patency: baseline Mental status: baseline Post-Op hydration status: normal Vital Signs: Last Vital Signs Temp 36.8 C 07/07/24 04:15 Pulse 110 H 07/07/24 04:15 Resp 12 07/07/24 04:15 BP 107/40 L 07/07/24 04:15 Pulse Ox 95 07/07/24 04:15 O2 Del Method Room Air 07/06/24 18:10 O2 Flow Rate 8 07/06/24 16:40 Pain Score (VAS): 0 I/O: Intake & Output 07/06/24 07/06/24 07/07/24 15:59 23:59 07:59 Intake Total 350 1450 1000 Output Total 650 690 150 Balance -300 760 850 Laboratory Tests 07/07/24 05:36 07/07/24 05:36 07/06/24 07/07/24 19:51 05:36 WBC 12.3 H 10.1 H RBC 3.60 L 3.35 L Hgb 10.8 L 10.1 L Hct 33.2 L 31.8 L MCV 92.2 94.9 MCH 30.0 30.1 MCHC 32.5 31.8 L RDW 12.4 12.7 Plt Count 271 283 MPV 8.8 9.0 Immature Gran % (Auto) 0.4 0.4 Neut % (Auto) 94.9 H 84.9 H Lymph % (Auto) 2.5 L 8.4 L [place] % (Auto) 2.0 L 5.8 Eos % (Auto) 0.0 0.1 Baso % (Auto) 0.2 0.4 Lymph # (Auto) 0.31 L 0.85 L [place] # (Auto) 0.3 0.6 Eos # (Auto) 0.0 0.0 Baso # (Auto) 0.0 0.0 Abs Immat Gran (auto) 0.05 H 0.04 H Absolute Neuts (auto) 11.6 H 8.5 H Absolute Nucleated RBC 0.000 0.000 Nucleated RBC % 0.0 0.0 Sodium 136 L Potassium 3.7 Chloride 106 Carbon Dioxide 22 Anion Gap 8 BUN 16 Creatinine 0.60 L Estim Creat Clear Calc 49 Estimated GFR > 60 Glucose 97 Calcium 8.3 L Total Bilirubin 0.5 AST 30 ALT 18 Alkaline Phosphatase 124 Total Protein 6.0 L Albumin 3.0 L Microbiology 07/05/24 18:02 Urine Catheterized Urine Culture - Preliminary Escherichia Coli Post-procedural complaints: none Patient Feedback: Patient satisfied with anesthetic care.
--- NOTE | 2024-07-07 08:00 | PC.NURSE ---
Pt extremely agitated and isn't keeping leads or tele on
--- NOTE | 2024-07-07 09:37 | PCPTNOTE ---
attempted PT eval, pt very confused and attempting to take off clothes, per RN attempt eval at a later time, will follow
[2024-07-07] MEDS: OLANZapine 10 MG INJ VIAL 5 MG IM (09:53)
[2024-07-07] MEDS: VANCOMYCIN 1,000 MG/NS 250 ML 1,000 MG/250 ML BAG 250 MG IVPB (11:24)
--- NOTE | 2024-07-07 13:21 | PM.PNORT ---
Progress Note: A&P Assessment and Plan (1) Fracture of femoral neck, right, closed: Qualifiers: Encounter type: initial encounter Qualified Code(s): S72.001A - Fracture of unspecified part of neck of right femur, initial encounter for closed fracture Code(s): S72.001A - Fracture of unspecified part of neck of right femur, initial encounter for closed fracture Status: Acute Assessment and Plan: Patient is postop day 1 after cemented bipolar hemiarthroplasty right hip. She is in bed talking rapidly and her words are understandable. She is a little bit agitated intermittently. She seems like she did when I saw her the evening before last before her surgery. Yesterday she was more somnolent in the ring. She has with her family this time her son and granddaughter and daughter in law. Her wound is she has a Mepilex dressing in place. The drain was removed. Physical therapy was with her this morning but she refused to get out of bed. She has not had telemetry for past 10 hours. She wont keep the leads on and the last time the nurse went in to reattach the leads she bit the nurses hand. She has had no known ectopy. Physical therapy is being called back and it is hoped that she will allow trying to transfer and ambulate with the family's encouragement. Hemoglobin 10.1 stable. Subjective Subjective Date/Time Seen: 07/07/24 13:21 Objective Data Vital Signs Vital Signs: Vital Signs - 24 hr 07/06/24 16:25 07/06/24 16:40 07/06/24 16:55 Temperature 36.7 C Pulse Rate 62 61 62 Respiratory Rate 17 15 15 Blood Pressure 127/49 L 125/51 L 102/46 L Pulse Oximetry 100 100 98 Oxygen Delivery Simple Face Mask Simple Face Mask Room Air Oxygen Flow Rate 8 8 07/06/24 17:10 07/06/24 17:25 07/06/24 17:40 Temperature Pulse Rate 63 64 64 Respiratory Rate 15 16 16 Blood Pressure 104/45 L 98/43 L 103/48 L Pulse Oximetry 97 98 97 Oxygen Delivery Room Air Room Air Room Air Oxygen Flow Rate 07/06/24 17:54 07/06/24 18:10 07/06/24 18:30 Temperature 35.9 C L Pulse Rate 65 73 Respiratory Rate 16 16 Blood Pressure 101/47 L 106/66 Pulse Oximetry 98 96 96 Oxygen Delivery Room Air Room Air Oxygen Flow Rate 07/06/24 18:45 07/06/24 19:30 07/06/24 20:40 Temperature 36.3 C L 37.1 C 36.4 C Pulse Rate 81 82 100 Respiratory Rate 16 12 14 Blood Pressure 99/47 L 100/54 L 96/57 L Pulse Oximetry 97 97 96 Oxygen Delivery Oxygen Flow Rate 07/06/24 20:00 07/07/24 00:15 07/07/24 01:37 Temperature 36.2 C L Pulse Rate 79 71 Respiratory Rate 14 Blood Pressure 92/51 L 100/50 L Pulse Oximetry 96 Oxygen Delivery Oxygen Flow Rate 07/07/24 04:15 07/07/24 00:00 07/07/24 04:00 Temperature 36.8 C Pulse Rate 110 H 81 82 Respiratory Rate 12 Blood Pressure 107/40 L Pulse Oximetry 95 Oxygen Delivery Oxygen Flow Rate 07/07/24 08:00 Temperature 36.7 C Pulse Rate 102 H Respiratory Rate 14 Blood Pressure 112/52 L Pulse Oximetry 98 Oxygen Delivery Oxygen Flow Rate Intake/Output Intake/Output: Intake & Output 07/04/24 07/05/24 07/06/24 07/07/24 23:59 23:59 23:59 23:59 Intake Total 40 2800 1250 Output Total 150 1990 150 Balance -372 455 5284 Meds/Results Medications: Active Medications Generic Name Dose Route Start Last Admin Trade Name Freq PRN Reason Stop Dose Admin Acetaminophen 500 mg 07/06/24 18:45 07/07/24 08:42 Acetaminophen 500 Mg Tablet PO Not Given Q4HR [facility] Amlodipine Besylate 10 mg 07/07/24 09:00 07/07/24 08:42 Amlodipine Besylate 10 Mg Tablet PO Not Given DAILY MANOJ Aspirin 81 mg 07/06/24 18:30 07/07/24 08:21 Aspirin 81 Mg Chewable Tablet PO Not Given DAILY@0800 [facility] Atorvastatin Calcium 10 mg 07/05/24 21:00 07/06/24 20:50 Atorvastatin 10 Mg Tablet PO 10 mg HS MANOJ Administration Bisacodyl 5 mg 07/05/24 15:27 Bisacodyl 5 Mg Tablet Ec PO DAILY PRN
[2024-07-07] MEDS: NITROFURANTOIN MONOHYD MACROCR 100 MG CAP PO (13:54)
--- NOTE | 2024-07-07 14:06 | PM.IMPN ---
Progress Note: A&P Assessment and Plan (1) Fall from wheelchair: Code(s): W05.0XXA - Fall from non-moving wheelchair, initial encounter Status: Acute Assessment and Plan: - Unclear if witnessed or unwitnessed from medical records review and pt unable to tell 2/[address] - [address] head with no acute intracranial process. - Right femoral neck fracture on XR right hip to be managed per ortho. - XR right knee negative for acute. - Labs fairly wnl. - No obvious signs of infection. - EKG: SR with occasional PVC's, non-specific ST, T wave abnormalities. - UA and CXR pending. - Fall precautions. (2) Fracture of femoral neck, right, closed: Qualifiers: Encounter type: initial encounter Qualified Code(s): S72.001A - Fracture of unspecified part of neck of right femur, initial encounter for closed fracture Code(s): S72.001A - Fracture of unspecified part of neck of right femur, initial encounter for closed fracture Status: Acute Assessment and Plan: - Secondary to fall. Xrays reviewed S/p ORIF cardiology eval noted moderate risk for surgery ortho consulted from ER PT/OT and PRN pain control (3) Dementia without behavioral disturbance: Code(s): F03.90 - Unspecified dementia, unspecified severity, without behavioral disturbance, psychotic disturbance, mood disturbance, and anxiety Status: Chronic Assessment and Plan: - Resume home meds. - Safety monitoring and assist with care. (4) Essential (primary) hypertension: Code(s): I10 - Essential (primary) hypertension Status: Chronic Assessment and Plan: - Home meds resumed. - Adjust meds as needed. (5) Major depressive disorder: Code(s): F32.9 - Major depressive disorder, single episode, unspecified Status: Acute Assessment and Plan: - Home meds resumed. (6) Mixed hyperlipidemia: Code(s): E78.2 - Mixed hyperlipidemia Status: Acute Assessment and Plan: - Continue statin. Plan Code Status: DNR. Diet: Heart Healthy, NPO post midnight for surgery. DVT PPx: per Ortho Lines: Peripheral IV Subjective Date/time seen: 07/07/24 14:06 Interval history: Patient comfortable at bedside, had agitation earlier this morning received Olanzapine 5mg IM once Review of Systems Review of Systems: patient comfortable at bedside but confused which is noted to be her baseline by her nurse awaiting ORIF by Ortho All systems reviewed & are unremarkable except as noted in HPI and below Exam Narrative: General: Pleasantly confused, only oriented to self. HEENT: Atraumatic, PERRL, pink and moist mucus membrane. Neck: Supple. Respiratory: Clear bilaterally. Operations Lead: RRR, S1S2. Gastrointestinal: Soft and non-tender, +ve bowel sounds all quadrants. Skin: Warm and dry. No rash or lesions noted on limited exam. Extremities: No cyanosis, clubbing or edema. Right leg shortened. Neurological: Pleasantly confused. Psych: Oriented to self. Cranial nerves II-XII grossly intact. Urinary Catheter: Urinary Catheter: patent and draining and urine clear Objective Data Vital Signs Vital Signs: Vital Signs - 24 hr 07/06/24 16:25 07/06/24 16:40 07/06/24 16:55 Temperature 98.1 F Pulse Rate 62 61 62 Respiratory Rate 17 15 15 Blood Pressure 127/49 L 125/51 L 102/46 L Pulse Oximetry 100 100 98 Oxygen Delivery Simple Face Mask Simple Face Mask Room Air Oxygen Flow Rate 8 8 07/06/24 17:10 07/06/24 17:25 07/06/24 17:40 Temperature Pulse Rate 63 64 64 Respiratory Rate 15 16 16 Blood Pressure 104/45 L 98/43 L 103/48 L Pulse Oximetry 97 98 97 Oxygen Delivery Room Air Room Air Room Air Oxygen Flow Rate 07/06/24 17:54 07/06/24 18:10 07/06/24 18:30 Temperature 96.6 F L Pulse Rate 65 73 Respiratory Rate 16 16 Blood Pressure 101/47 L 106/66 Pulse Oximetry 98 96 96 Oxygen Delivery Room Air Room Air Oxygen Flow Rate 07/06/24 18:45
[2024-07-07 15:09] LABS: Basophils Percent Auto 0.5 % (0.2-1.2); Eosinophils Absolute Auto 0.1 K/mm3 (0-0.3); Eosinophils Percent Auto 0.6 % (0-4.4); Hemoglobin 8.4 g/dL (12.0-15.0); Immature Granulocyte Absolute 0.05 K/mm3 (0.00-0.031); Immature Granulocyte Percent A 0.6 % (0-0.5); Lymphocytes Absolute Auto 0.74 K/mm3 (0.9-3.2); Lymphocytes Percent Auto 9.6 % (18.3-44.2); Mean Corpuscular Hemoglobin 30.5 pg (26-34); Mean Corpuscular Volume 101.8 fl (80-100); Monocytes Absolute Auto 0.5 K/mm3 (0.1-0.6); Neutrophils Absolute Auto 6.4 K/mm3 (1.3-6.7); Neutrophils Percent Auto 82.7 % (45.5-73.1); Platelet Count Result 226 k/mm3 (150-375); Red Blood Count 2.75 M/mm3 (4.2-5.4); Red Cell Distribution Width 12.9 % (11.5-14.5); White Blood Count 7.7 K/mm3 (4.5-10.0)
[2024-07-07 15:11] LABS: Lactic Acid Reflex 1.6 mmol/L (0.7-2.0)
[2024-07-07] MEDS: SENNA/DOCUSATE SODIUM TABLET 2 TAB PO (18:29)
[2024-07-07] MEDS: busPIRone HCL 10 MG TABLET PO (18:29)
[2024-07-07] MEDS: METOPROLOL TARTRATE 50 MG TAB PO (18:29)
[2024-07-07] MEDS: PANTOPRAZOLE 40 MG TABLET PO (18:29)
[2024-07-07] MEDS: oxyCODONE HCL (*CRX) 2.5 MG TAB IR PO (21:41)
[2024-07-07] MEDS: DOXYCYCLINE HYCLATE 100 MG TABLET PO (21:41)
[2024-07-07] MEDS: LORazepam (*CRX) 0.5 MG TABLET PO (21:42)
[2024-07-07] MEDS: SODIUM CHLORIDE 0.9% IV 1,000 ML 75 ML IV CONT (21:46)
[2024-07-08] MEDS: MORPHINE SULFATE (*CRX) 2 MG/ML INJ IV PUSH (01:29)
[2024-07-08] MEDS: SODIUM CHLORIDE 0.9% IV 1,000 ML 75 ML IV CONT (05:58)
[2024-07-08 06:20] LABS: Basophils Percent Auto 0.4 % (0.2-1.2); Eosinophils Absolute Auto 0.2 K/mm3 (0-0.3); Eosinophils Percent Auto 2.4 % (0-4.4); Hematocrit 32.7 % (37.0-47.0); Hemoglobin 10.4 g/dL (12.0-15.0); Immature Granulocyte Absolute 0.05 K/mm3 (0.00-0.031); Immature Granulocyte Percent A 0.5 % (0-0.5); Lymphocytes Percent Auto 12.9 % (18.3-44.2); Mean Corpuscular HGB Conc 31.8 g/dl (32-36); Mean Corpuscular Hemoglobin 30.5 pg (26-34); Mean Corpuscular Volume 95.9 fl (80-100); Mean Platelet Volume 9.1 fl (7.4-10.4); Monocytes Absolute Auto 0.5 K/mm3 (0.1-0.6); Monocytes Percent Auto 4.9 % (2.6-8.5); Neutrophils Absolute Auto 7.3 K/mm3 (1.3-6.7); Neutrophils Percent Auto 78.9 % (45.5-73.1); Platelet Count Result 294 k/mm3 (150-375); Red Blood Count 3.41 M/mm3 (4.2-5.4); Red Cell Distribution Width 12.7 % (11.5-14.5); White Blood Count 9.3 K/mm3 (4.5-10.0)
[2024-07-08 06:34] LABS: Lactic Acid Reflex 1.2 mmol/L (0.7-2.0)
[2024-07-08 06:40] LABS: Alanine Aminotransferase 18 U/L (6-35); Albumin Level 3.3 g/dL (3.5-5.1); Alkaline Phosphatase 124 U/L (38-126); Anion Gap 10 mmol/L (4-12); Aspartate Amino Transferase 38 U/L (14-36); Bilirubin,Total 0.5 mg/dL (0.2-1.3); Blood Urea Nitrogen 9 mg/dL (7-17); Calcium 8.4 mg/dL (8.4-10.2); Carbon Dioxide 23 mmol/L (22-30); Chloride 104 mmol/L (98-107); Estimated CRCL calculation 58 ml/min; Estimated Glomerular Filt Rate > 60; Glucose 88 mg/dL (65-110); Magnesium 1.7 mg/dL (1.6-2.3); Potassium 3.2 mmol/L (3.4-5.0); Sodium 137 mmol/L (137-145)
--- NOTE | 2024-07-08 09:52 | PM.DS ---
DS: Admitting Diagnosis Discharge Date 07/08/24 Admitting Diagnosis hip fracture DS: Summary Hospital Course Hospital Course: Patient is a resident at [facility] and was transferred to this facility from [facility] in [place] with concern for Right hip fracture. Patient is wheelchair spencer and apparently was placed on the wheelchair in her room but attempted to walk, and was found on the floor. Unclear if the fall was witnessed or unwitnessed and patient unable to provide any information due her history of dementia. Patient had imaging done at the transferring hospital that revealed an acute, displaced subcapital fracture of the right femoral neck. Patient was transferred to this facility for further treatment per Orthopedic surgeon here at [facility]. As mentioned, patient confused due to dementia and denies pain but grimaces and moans with right hip region palpation. Significant Labs from transferring facility: Na 140, K+ 3.6, Ca 9.5, CO2 22.8, BUN 19, Cr 0.72, WBC 7.8, Hgb 12.4, HCT 37.5, Plat 331, EKK: SR with occasional PVC's, non-specific ST, T waves abnormalities. Patient underwent ORIF, PT evaluated and recommended SNF. Also patient was managed for UTI, urine culture positive for pansensitive E coli, patient was discharged on BActrim x 5 days. Patient will follow up with PCP in 3-5 days, and F/u with ortho as instructed Topical management Assessment and Plan (1) Fall from wheelchair: Code(s): W05.0XXA - Fall from non-moving wheelchair, initial encounter Status: Acute Assessment and Plan: - Unclear if witnessed or unwitnessed from medical records review and pt unable to tell 2/2 dementia. - CT head with no acute intracranial process. - Right femoral neck fracture on XR right hip to be managed per ortho. - XR right knee negative for acute. - EKG: SR with occasional PVC's, non-specific ST, T wave abnormalities. - UA and CXR pending.- Fall precautions. (2) Fracture of femoral neck, right, closed: Qualifiers: Encounter type: initial encounter Qualified Code(s): S72.001A - Fracture of unspecified part of neck of right femur, initial encounter for closed fracture Code(s): S72.001A - Fracture of unspecified part of neck of right femur, initial encounter for closed fracture Status: Acute Assessment and Plan: - Secondary to fall. Xrays reviewed S/p ORIF cardiology eval noted moderate risk for surgery F/u with ortho as instructed PRN pain control adn continue PT at SNF. Possible Pneumonia CXR on admission showed subtle right basilar infiltrates which may represent atelectasis or developing pneumonia on Doxycycline, WBC resolving Discharge on Doxy x 6 more days (3) Dementia without behavioral disturbance: Code(s): F03.90 - Unspecified dementia, unspecified severity, without behavioral disturbance, psychotic disturbance, mood disturbance, and anxiety Status: Chronic Assessment and Plan: alert and completely confused at baseline - Resume home meds. - Safety monitoring and assist with care. UTI Urine culture positive for pansensitive E coli discharged on 5 days of bactrim. (4) Essential (primary) hypertension: Code(s): I10 - Essential (primary) hypertension Status: Chronic Assessment and Plan: - Home meds resumed. (5) Major depressive disorder: Code(s): F32.9 - Major depressive disorder, single episode, unspecified Status: Acute Assessment and Plan: - Home meds resumed. (6) Mixed hyperlipidemia: Code(s): E78.2 - Mixed hyperlipidemia Status: Acute Assessment and Plan: - Continue statin. F/u with PCP in 3-5 days, f/u with ortho as instructed Time Spent with Patient Time attestation: Total time spent providing and/or coordinating discharge services: DS: Data Data Completed and Pending Labs on day of discharge: Labs from last 24 hours
--- NOTE | 2024-07-08 10:32 | PM.PNORT ---
Progress Note: A&P Assessment and Plan (1) Fracture of femoral neck, right, closed: Qualifiers: Encounter type: initial encounter Qualified Code(s): S72.001A - Fracture of unspecified part of neck of right femur, initial encounter for closed fracture Code(s): S72.001A - Fracture of unspecified part of neck of right femur, initial encounter for closed fracture Status: Acute Assessment and Plan: Postop day 2 after cemented bipolar hemiarthroplasty right hip. Her wound is dry. She does not have a Mepilex dressing on and I assume she pulled off. She is now wearing the mittens. She is not as communicative today but she did tell me to stop as I tried to adjust her sheets of that she was better covered. Patient has moderately severe dementia and status in this regard has not changed significantly compared with preoperative. Her hemoglobin this morning 10.4 and stable. Yesterday her hemoglobin was 8.4 in the afternoon. Is unclear why it has fluctuated this much. Yesterday's may have been artificially low if it was taken next to an IV site for today's might be artificially elevated due to dehydration. Her BUN of 9 would argue against dehydration today. Her I and O chart indicates 2300 intake yesterday and 1000 already this morning. She was sleeping this morning went there so they did not disturb her as she has been very agitated overnight but they are going to come back later today to try to get her up the chair.. Subjective Subjective Date/Time Seen: 07/08/24 10:32 Objective Data Vital Signs Vital Signs: Vital Signs - 24 hr 07/07/24 12:39 07/07/24 18:29 07/07/24 20:00 Temperature 37.6 C H Pulse Rate 89 85 Respiratory Rate 24 H Blood Pressure 137/65 Pulse Oximetry 99 Oxygen Delivery Room Air 07/07/24 21:45 07/08/24 08:00 Temperature Pulse Rate Respiratory Rate Blood Pressure Pulse Oximetry Oxygen Delivery Room Air Room Air Intake/Output Intake/Output: Intake & Output 07/05/24 07/06/24 07/07/24 07/08/24 23:59 23:59 23:59 23:59 Intake Total 40 2800 2300 1000 Output Total 150 1990 150 800 Balance -547 450 8461 200 Meds/Results Medications: Active Medications Generic Name Dose Route Start Last Admin Trade Name Freq PRN Reason Stop Dose Admin Acetaminophen 500 mg 07/06/24 18:45 07/08/24 04:08 Acetaminophen 500 Mg Tablet PO Not Given Q4HR [facility] Aspirin 81 mg 07/06/24 18:30 07/07/24 08:21 Aspirin 81 Mg Chewable Tablet PO Not Given DAILY@0800 [facility] Atorvastatin Calcium 10 mg 07/05/24 21:00 07/07/24 21:47 Atorvastatin 10 Mg Tablet PO Not Given HS MANOJ Bisacodyl 5 mg 07/05/24 15:27 Bisacodyl 5 Mg Tablet Ec PO DAILY PRN Constipation Buspirone HCl 10 mg 07/05/24 17:00 07/07/24 18:29 Buspirone Hcl 10 Mg Tablet PO 10 mg BID [facility] Administration Celecoxib 100 mg 07/07/24 08:00 07/07/24 08:21 Celecoxib 100 Mg Capsule PO Not Given DAILY@0800 [facility] Doxycycline Hyclate 100 mg 07/07/24 21:00 07/07/24 21:41 Doxycycline Hyclate 100 Mg Tablet PO 07/14/24 20:59 100 mg Q12HR [facility] Administration Enoxaparin Sodium 40 mg 07/07/24 09:00 07/07/24 08:43 Enoxaparin 40 Mg/0.4 Ml Syringe SUB-Q Not Given DAILY [facility] Ferrous Sulfate 325 mg 07/06/24 09:00 07/07/24 08:43 Ferrous Sulfate [address] BY MOUTH Not Given DAILY [facility] Sodium Chloride 1,000 mls @ 75 mls/hr 07/07/24 14:15 07/08/24 05:58 Normal Saline Iv IV CONT 75 mls/hr .[id number] [facility]OJ Administration Lorazepam 0.5 mg 07/05/24 15:34 07/07/24 21:42 Lorazepam (*Crx) 0.5 Mg Tablet PO 0.5 mg TID PRN Administration anxiety/aggitation Metoprolol Tartrate 50 mg 07/05/24 17:00 07/07/24 18:29 Metoprolol Tartrate 50 Mg Tab PO 50 mg BID MANOJ Administration Mirtazapine 15 mg 07/05/24 21:00 07/07/24 21:47 Mirtazapine 15 Mg Tablet PO Not Given HS [facility] Morphine Sulfate 2 mg
[2024-07-08] MEDS: polyethylene glycoL 3350 17 GM POWD.PACK PO ×3 (10:48→10:52)
[2024-07-08] MEDS: ENOXAPARIN 40 MG/0.4 ML SYRINGE SUB-Q (10:48)
[2024-07-08] MEDS: SENNA/DOCUSATE SODIUM TABLET 2 TAB PO (10:48)
[2024-07-08 10:49] VITALS: PULSE 61
[2024-07-08] MEDS: TAMSULOSIN HCL 0.4 MG CAPSULE PO (10:49)
[2024-07-08] MEDS: NITROFURANTOIN MONOHYD MACROCR 100 MG CAP PO (10:49)
[2024-07-08] MEDS: ACETAMINOPHEN 500 MG TABLET PO (10:49)
[2024-07-08] MEDS: METOPROLOL TARTRATE 50 MG TAB PO (10:49)
[2024-07-08] MEDS: PANTOPRAZOLE 40 MG TABLET PO (10:49)
[2024-07-08] MEDS: ASPIRIN 81 MG CHEWABLE TABLET PO (10:49)
[2024-07-08] MEDS: MULTIVITAMINS /C LUTEIN (CENTRUM SILVER) TABLET *BKC 1 TAB PO (10:49)
[2024-07-08] MEDS: FERROUS SULFATE 325 MG TABLET DR BY MOUTH (10:49)
[2024-07-08] MEDS: CELECOXIB 100 MG CAPSULE PO (10:49)
[2024-07-08] MEDS: DOXYCYCLINE HYCLATE 100 MG TABLET PO (10:49)
[2024-07-08] MEDS: SERTRALINE HCL 50 MG TABLET 100 MG PO (10:51)
[2024-07-08] MEDS: busPIRone HCL 10 MG TABLET PO (10:52)
[2024-07-08 14:59] LABS: Basophils Percent Auto 0.3 % (0.2-1.2); Eosinophils Absolute Auto 0.1 K/mm3 (0-0.3); Eosinophils Percent Auto 1.1 % (0-4.4); Hematocrit 28.7 % (37.0-47.0); Hemoglobin 9.5 g/dL (12.0-15.0); Immature Granulocyte Absolute 0.04 K/mm3 (0.00-0.031); Immature Granulocyte Percent A 0.4 % (0-0.5); Lymphocytes Absolute Auto 1.03 K/mm3 (0.9-3.2); Lymphocytes Percent Auto 11.4 % (18.3-44.2); Mean Corpuscular HGB Conc 33.1 g/dl (32-36); Mean Corpuscular Hemoglobin 30.4 pg (26-34); Mean Corpuscular Volume 91.7 fl (80-100); Mean Platelet Volume 8.5 fl (7.4-10.4); Monocytes Absolute Auto 0.5 K/mm3 (0.1-0.6); Monocytes Percent Auto 5.8 % (2.6-8.5); Neutrophils Absolute Auto 7.3 K/mm3 (1.3-6.7); Platelet Count Result 249 k/mm3 (150-375); Red Blood Count 3.13 M/mm3 (4.2-5.4); Red Cell Distribution Width 12.6 % (11.5-14.5)
== END 2024-07-08 15:23 | DRG 521 ==
PROVIDERS: Nurse Practitioner Adult Health; Orthopaedic Surgery; Admitting Provider Family Medicine; PCP Family Medicine; Visit Provider Internal Medicine
PROC: 0SRR019 Replacement of Right Hip Joint, Femoral Surface with Metal Synthetic Substitute, Cemented, Open Approach (ICD-10-PCS; CPT 27125; principal; 2024-07-06 12:30)
DX: S72.001A Fracture of unspecified part of neck of right femur, initial encounter for closed fracture (principal); J18.9 Pneumonia, unspecified organism; N39.0 Urinary tract infection, site not specified; W05.0XXA Fall from non-moving wheelchair, initial encounter; F03.90 Unspecified dementia, unspecified severity, without behavioral disturbance, psychotic disturbance, mood disturbance, and anxiety; B96.20 Unspecified Escherichia coli [E. coli] as the cause of diseases classified elsewhere; I10 Essential (primary) hypertension; F32.9 Major depressive disorder, single episode, unspecified; E78.2 Mixed hyperlipidemia; I25.10 Atherosclerotic heart disease of native coronary artery without angina pectoris; I35.0 Nonrheumatic aortic (valve) stenosis; Z66 Do not resuscitate; Z99.3 Dependence on wheelchair
CPT/HCPCS: 36415; 71045; 73501; 73502; 80048; 80053; 81001; 83605; 83735; 84484; 85025; 85610; 85730; 86850; 86880; 86900; 86901; 86902; 86922; 87077; 87086; 87088; 87186; 93005; 93306; 97110; 97163; 97530; 99199; A9270; C1713; C1776; J0171; J0457; J0690; J1100; J1596; J1650; J1885; J2270; J2359; J2371; J2405; J2704; J2710; J2795; J3010; J3370; J7030; J7120